=== PATIENT | female | born 1960 | race Caucasian/White ===

== ENCOUNTER → 2020-11-24 | Outpatient (CLI) | payer OTHER ==
[~2020-11-24] MED LIST: CEFUROXIME500 MG PO; CELEXA40 MG PO; ECOTRIN81 MG PO; ENTRESTO 24 MG1 EACH PO; IBUPROFEN400 MG PO; IBUPROFEN600 MG PO; INCRUSE ELLI62.5 MCG INH; K-DUR TAB 20 M20 MEQ PO; LASIX40 MG PO; MEDROL4 MG PO; NORCO 7.5-3251 EACH PO; PERCOCET 5/325 T1 EA PO; PRILOSEC OTC20 MG PO; PRINIVIL5 MG PO; PROVENTIL HFA6.7 GM INH; SYMBICORT 16010.2 GM INH; TESSALON PERLE100 MG PO; TOPROL XL25 MG PO; VENTOLIN HFA 66.7 GM INH; ZITHROMAX500 MG PO
== END ==
LOC: US 07:34
DX: R74.8 Abnormal levels of other serum enzymes (principal); R10.11 Right upper quadrant pain
CPT/HCPCS: 76705

== ENCOUNTER → 2021-07-20 | Outpatient (CLI) | payer OTHER ==
[~2021-07-20] MED LIST changes: +CEPHALEXIN500 M1 PO
== END ==
LOC: HEART 5 14:33
DX: I42.8 Other cardiomyopathies (principal); I50.9 Heart failure, unspecified; R07.9 Chest pain, unspecified; R60.9 Edema, unspecified; R00.2 Palpitations; R06.02 Shortness of breath; I34.0 Nonrheumatic mitral (valve) insufficiency; I51.7 Cardiomegaly
CPT/HCPCS: 93306

== ENCOUNTER 2021-07-26 11:53 | Emergency (ER) | payer OTHER ==
[~2021-07-26 11:53] MED LIST changes: -CEPHALEXIN500 M1 PO
[2021-07-26 12:53] LABS: HEMOGLOBIN 17.5 gm/dl (12.3-15.3); RED BLOOD COUNT 5.33 M/UL (4.00-5.10); WHITE BLOOD COUNT 7.9 K/UL (4.5-11.0)
[2021-07-26 13:12] LABS: BUN/CREATININE RATIO 14 (0-10)
[2021-07-26] MEDS ORDERED: CEPHALEXIN500 M1 PO (15:21)
== END 2021-07-26 16:05 | disposition home or self-care (01) ==
LOC: ER1 11:53
PROVIDERS: Nurse Practitioner
DX: L03.211 Cellulitis of face (principal); Z20.822 Contact with and (suspected) exposure to COVID-19; E11.9 Type 2 diabetes mellitus without complications; I11.0 Hypertensive heart disease with heart failure; I50.9 Heart failure, unspecified; J44.9 Chronic obstructive pulmonary disease, unspecified; Z87.891 Personal history of nicotine dependence
CPT/HCPCS: 0240U; 70487; 71045; 80053; 81001; 83605; 85025; 87040; 99284; Q9967

== ENCOUNTER → 2021-10-04 | Outpatient (CLI) | payer OTHER ==
[~2021-10-04] MED LIST changes: +CEPHALEXIN500 M1 PO
== END ==
LOC: MAMO 04-08 14:30
DX: Z12.31 Encounter for screening mammogram for malignant neoplasm of breast (principal)
CPT/HCPCS: 77063; 77067

== ENCOUNTER 2021-12-19 14:55 | Emergency (ER) | payer OTHER ==
[2021-12-19 15:46] LABS: HEMOGLOBIN 17.4 gm/dl (12.3-15.3); RED BLOOD COUNT 5.3 M/UL (4.00-5.10)
[2021-12-19 16:06] LABS: BUN/CREATININE RATIO 12 (0-10)
[2021-12-20] MEDS ORDERED: TORADOL 10 MG T10 MG PO (12:55)
== END 2021-12-19 17:19 | disposition left against medical advice (07) ==
LOC: ER1 14:55
PROVIDERS: Emergency Medicine
DX: R10.9 Unspecified abdominal pain (principal); R11.0 Nausea; M54.9 Dorsalgia, unspecified; I10 Essential (primary) hypertension; E11.9 Type 2 diabetes mellitus without complications
CPT/HCPCS: 80053; 81001; 83690; 85025; 99281

== ENCOUNTER 2021-12-20 10:19 | Emergency (ER) | payer OTHER ==
[2021-12-20] MEDS ORDERED: TORADOL 10 MG T10 MG PO (12:55)
[2021-12-21 08:13] LABS: HBSAG SCREEN Negative (Negative); HCV AB <0.1 (0.0-0.9); HEP A AB, IGM Negative (Negative); HEP B CORE AB, IGM Negative (Negative)
== END 2021-12-20 13:04 | disposition home or self-care (01) ==
LOC: ER1 10:19
PROVIDERS: Physician Assistant
DX: K74.60 Unspecified cirrhosis of liver (principal); E11.9 Type 2 diabetes mellitus without complications; J44.9 Chronic obstructive pulmonary disease, unspecified; I51.9 Heart disease, unspecified; Z86.73 Personal history of transient ischemic attack (TIA), and cerebral infarction without residual deficits; Z99.81 Dependence on supplemental oxygen; Z79.82 Long term (current) use of aspirin; Z91.040 Latex allergy status; Z88.5 Allergy status to narcotic agent
CPT/HCPCS: 80074; 85610; 96374; 96375; 99284; J1885; J2405; Q9967